=== PATIENT | male | born 1950 | race Caucasian/White ===

== ENCOUNTER 2017-06-01 13:33 | Emergency (ER) | payer MEDICARE ==
[~2017-06-01 13:33] MED LIST: ALBU8.5H8 INH; AMIO200T57 PO; APIX5TAB3 PO; ATOR80TA PO; BUDE10.2 INH; BUSP5TAB3 PO; CALC1TAB86 PO; CARV-50 PO; CLOP75TA35 PO; DIGO125T PO; FURO40TA4 PO; INSU100C4 SQ; INSU100V12 SQ; LEVO500T2 PO; LORA0.5T PO; MULT-785 PO; NORCO10T PO; OMEG1CAP54 PO; POTA20TA19 PO; RANI75TA19 PO; SERT25TA PO; SPIIN INH; SPIR25TA3 PO; ZES2.5T PO
[2017-06-01] MEDS ORDERED: amiodarone 50MG/ML inj IV ONE (17:00)
[2017-06-01] MEDS ORDERED: sodium bicarbonate (8.4%) 1 mEq/ml syringe ONE (17:00)
[2017-06-01] MEDS ORDERED: epiNEPHrine 0.1mg/ml 10ml syringe ONE (17:00)
[2017-06-01] MEDS ORDERED: sod chloride 0.9% 10ml flush syringe IV ONE (17:00)
== END 2017-06-01 15:29 | disposition expired ==
LOC: ER 13:33
DX: I46.9 Cardiac arrest, cause unspecified (principal); I48.91 Unspecified atrial fibrillation; I50.9 Heart failure, unspecified; E78.00 Pure hypercholesterolemia, unspecified; I10 Essential (primary) hypertension; J44.9 Chronic obstructive pulmonary disease, unspecified; E11.9 Type 2 diabetes mellitus without complications; Z95.1 Presence of aortocoronary bypass graft; Z88.5 Allergy status to narcotic agent
CPT/HCPCS: 92950; 99285; J0171; J0282